=== PATIENT | male | born 1955 | race Caucasian/White ===

== ENCOUNTER 2018-04-27 07:43 | Day surgery (SDC) | payer MEDICAID ==
[~2018-04-27 07:43] MED LIST: Lactated Ringers 1,000 ML IV SCH
[2018-04-27] MEDS ORDERED: Midazolam 1 MG/ML 2 ML SDV ONE (09:46)
[2018-04-27] MEDS ORDERED: Propofol 200 MG/20 ML SDV ONE (09:46)
[2018-04-27] MEDS ORDERED: fentaNYL 100 MCG/2 ML SDV ONE (09:46)
--- NOTE | 2018-04-27 10:42 | OR ---
PREOPERATIVE DIAGNOSIS: Family history of colon cancer-parent. POSTOPERATIVE DIAGNOSIS: Sigmoid diverticulosis, colonic polyps x2 removed. PROCEDURE PROPOSED: Total flexible colonoscopy. PROCEDURE DONE: Total flexible colonoscopy with hot snare polypectomy x1 and cold biopsy forceps polypectomy x1. INDICATION: This is a 62-year-old gentleman, who comes in now for his first colonoscopic exam. He has a family history of a parent having had colon cancer in the 90s. He denies any symptomatology. TECHNIQUE: The patient was brought to the endoscopy suite, placed in left lateral decubitus position. He was sedated per [employer]NAG[employer]IST with propofol. The flexible video colonoscope was then passed transanally and under visualization advanced to the cecum. Examination revealed a normal ascending colon and the proximal transverse colon at about 110 cm. There was an adenomatous polyp with a stalk that was easily removed by hot snare technique and retrieved with suction. The remainder of the transverse colon was unremarkable, as well as the descending colon and the proximal sigmoid at about 40 cm. There was a second polyp removed by cold biopsy forceps technique because it was rather small and flattish. He was also noted to have some sigmoid diverticulosis and the rectum was normal. The scope was then withdrawn. He tolerated procedure well. FINAL IMPRESSION: 1. Mild sigmoid diverticulosis. 2. Colonic polyps x2 removed. PLAN: He will be sent a letter with pathology report. I felt that he should continue with colonic surveillance every 5 years hereafter due to his family history and personal history of polyps. SCM: 04/27/2018 10:19:16 MODL: 04/27/2018 10:36:27 /[id number]
[2018-04-27 10:51] VITALS: BP 141/90
== END 2018-04-27 11:21 | disposition home or self-care (01) ==
LOC: VM.SDS 07:43
PROVIDERS: ATTEND Surgery
DX: R19.5 Other fecal abnormalities (principal); D12.5 Benign neoplasm of sigmoid colon; K51.40 Inflammatory polyps of colon without complications; K57.30 Diverticulosis of large intestine without perforation or abscess without bleeding; I10 Essential (primary) hypertension; I48.2 Chronic atrial fibrillation; E78.00 Pure hypercholesterolemia, unspecified; E78.5 Hyperlipidemia, unspecified; Z79.82 Long term (current) use of aspirin; Z80.0 Family history of malignant neoplasm of digestive organs
CPT/HCPCS: 45380; 45385; J2250; J2704; J3010; J7120

== ENCOUNTER 2024-02-11 12:17 | Day surgery (SDC) | payer MEDICAID, MEDICARE ==
[2024-02-11] MEDS: Lactated Ringers 1,000 ML IV SCH (12:39)
[2024-02-11] MEDS ORDERED: Propofol 200 MG/20 ML SDV ONE ×3 (12:46→15:09)
[2024-02-11] MEDS ORDERED: fentaNYL 100 MCG/2 ML SDV ONE (12:46)
[2024-02-11 15:55] VITALS: BP 110/74; PULSE 91
== END 2024-02-11 16:15 | disposition home or self-care (01) ==
LOC: VM.SDS 12:17
PROVIDERS: ATTEND Family Medicine
DX: Z12.11 Encounter for screening for malignant neoplasm of colon (principal); D12.0 Benign neoplasm of cecum; D12.6 Benign neoplasm of colon, unspecified; K57.30 Diverticulosis of large intestine without perforation or abscess without bleeding; I48.21 Permanent atrial fibrillation; E78.2 Mixed hyperlipidemia; I12.9 Hypertensive chronic kidney disease with stage 1 through stage 4 chronic kidney disease, or unspecified chronic kidney disease; N18.31 Chronic kidney disease, stage 3a; Z86.010 Personal history of colon polyps; Z80.0 Family history of malignant neoplasm of digestive organs; Z79.01 Long term (current) use of anticoagulants; Z79.899 Other long term (current) drug therapy
CPT/HCPCS: 00811; 45380; 45385; J2704; J3010; J7120; 88305